=== PATIENT | male | born 1965 | race Two or more races ===

== ENCOUNTER → 2016-11-18 | Outpatient (CLI) | payer BC ==
--- NOTE | 2016-11-18 10:03 | RAD ---
Exam performed: 3 views left thumb. History: Left thumb pain and swelling. Date of service: 11/18/16. Comparison: None available Findings: AP view of the hand and lateral and oblique views of the left thumb are obtained. Normal alignment is preserved. There is no acute fracture or dislocation. There is a small soft tissue swelling in relation to the interphalangeal joint. No foreign body. Impression: Soft tissue swelling in relation to the interphalangeal joint probably a ganglion cyst. No underlying bony abnormality seen.
== END | disposition home or self-care (01) ==
LOC: DXRADRC 09:50
PROVIDERS: ATTEND Plastic Surgery
DX: M79.645 Pain in left finger(s) (principal)
CPT/HCPCS: 73140

== ENCOUNTER 2020-08-15 10:21 | Emergency (ER) | payer BC, OTHER ==
[~2020-08-15] VITALS: Ht 182.9 cm; Wt 104.3 kg
[2020-08-15] MEDS ORDERED: NEOMY/BACITR/POLYMYXIN OINT PACKET. TP ONE (10:45)
--- NOTE | 2020-08-15 11:17 | RAD ---
CT HEAD AND MAXILLOFACIAL WO Date: 08/15/2020 11:00 AM Clinical Indication: headache, facial blunt trauma, epistaxis Comparison: None. Technique: 5 mm axial tomographic images were obtained of the head without contrast. These were view ed on brain and bone windows. Axial helical images of the face were obtained without contrast. Axial and coronal reconstruction was performed. One or more of the following dose reduction techniques were utilized: Automated exposure control (AEC), Adjustment of mA and/or kV according to patient size, Us e of iterative reconstruction technique such as ASiR, CT scan done according to ALARA and image gentl y/image wisely CT HEAD FINDINGS: The brain parenchyma is normal in attenuation. No intra- or extra-axial mass or fluid collection. No acute hemorrhage. The ventricles are normal in size, shape, and morphology. The rodriguez-white matter danica ction is normal. The basilar cisterns are patent. The mastoid air cells are clear. CT FACE FINDINGS: Acute displaced fracture of the nasal septum. Irregularity at the base of the nasal bone on the right . Question nondisplaced fracture of the nasal spine of the maxilla. Air hemorrhage levels in the maxillary sinus. The orbits are normal. The globes are intact. Impression: 1. Acute displaced nasal septum fracture. Irregularity at the base of the nasal bone on the right may represent additional fracture. Question nondisplaced maxillary nasal spine fracture. 2. No acute intracranial process. Electronically signed by: Cleve Diamond MD (08/15/2020 11:14 AM) [facility]
[2020-08-15] MEDS ORDERED: OXYMETAZOLINE 0.05% NASAL SPRAY 30ML BOTTLE. NS ONE (11:30)
[2020-08-15] MEDS ORDERED: AMOXICILLIN/K CLAV 875/125MG TABLET. PO ONE (11:30)
[2020-08-15] MEDS ORDERED: KETOROLAC 30 MG/ML VIAL. IM ONE (11:45)
--- NOTE | 2020-08-15 11:57 | PHYS DOC ---
Past History Past Medical History: No Pertinent History Past Surgical History: Other Additional Past Surgical Histo: RIGHT SHOULDER Smoking: Non-smoker Alcohol Use: Rarely Drug Use: None General Adult EDM: Chief Complaint: ABRASION HPI: HPI: Patient is a 55 year old male who presents with a facial abrasion after trauma. He was working on a pipe and the banding flew off and hit him in the nose. He denies LOC and he is not on any blood thinners. He has a small abrasion (<.25 cm) on the bridge of his nose that is no longer bleeding. He also had some bleeding in his nose that resolves with pressure. He denies any other focal head or neck pain, nausea, vomiting, dizziness, or weakness. EMS was called for him because initially when he saw the blood he felt like he might pass out. He currently rates his pain +2/10 and states he also has a headache that is +3/10. Review of Systems: Review of Systems: Constitutional: Denies fever or chills Eyes: Denies redness or eye pain HENT: Denies nasal congestion or sore throat. Pain in nose at point of impact. Respiratory: Denies cough or shortness of breath Cardiovascular: Denies chest pain or palpitations GI: Denies abdominal pain, nausea, or vomiting : Denies dysuria or hematuria Musculoskeletal: Denies back pain or joint pain Integument: Denies rash or skin lesions Neurologic: Denies headache, focal weakness or sensory changes Complete systems were reviewed and found to be within normal limits, except as documented in this note. Current Medications: Current Meds: Current Medications Medications (Trade) Dose Ordered Sig/Rupesh Start Time Stop Time Status Last Admin Dose Admin Amoxicillin/ Clavulanate Potassium (Augmentin 875/ 125mg) 1 tab 1X ONCE 08/15/20 11:30 08/15/20 11:31 DC Neomycin/ Polymyxin/ Bacitracin (Triple Antibiotic Ointment) 1 pkt 1X ONCE 08/15/20 10:45 08/15/20 10:46 DC 08/15/20 10:59 1 PKT Oxymetazoline HCl (Afrin) 2 spray 1X ONCE 08/15/20 11:30 08/15/20 11:31 DC Allergies: Allergies: Allergies Coded Allergies Type Severity Reaction Last Updated Verified No Known Drug Allergies 08/15/20 No Physical Exam: PE: Constitutional: Well developed, well nourished, no acute distress, non-toxic appearance HENT: Normocephalic, Small <.25 cm abrasion to the bridge of his nose. Mild bleeding from both nostrils. No laceration or hematoma visualized inside nostrils. Clots visualized bilaterally. Mild blood present in back of throat. No trauma to mouth or teeth, no jaw tenderness. Eyes: PERRL, EOMI, conjunctiva normal, no discharge. Normal vision, no eye trauma. Neck: Normal range of motion, no tenderness, supple. Lungs & Thorax: No respiratory distress, equal chest rise and fall Abdomen: Soft, no tenderness Skin: Warm, dry, no erythema, no rash Back: No tenderness, no CVA tenderness Extremities: No tenderness, ROM intact, no edema Neurologic: Alert and oriented X 3, normal motor function, normal sensory function, no focal deficits noted. CN2-12 intact bilaterally. Psychologic: Affect normal, judgment normal Current Patient Data: Vital Signs: Vital Signs Date Time Temp Pulse Resp B/P (MAP) Pulse Ox O2 Delivery O2 Flow Rate FiO2 08/15/20 10:28 97.5 55 18 134/82 (99) 95 Room Air EKG: EKG: [] Radiology/Procedures: Radiology/Procedures: PROCEDURE: CT HEAD AND MAXILLOFACIAL WO CT HEAD AND MAXILLOFACIAL WO Date: 08/15/2020 11:00 AM Clinical Indication: headache, facial blunt trauma, epistaxis Comparison: None. Technique: 5 mm axial tomographic images were obtained of the head without contrast. These were viewed on brain and bone windows. Axial helical images of the face were obtained without contrast. Axial and coronal reconstruction was performed. One or more of the following dose reduction techniques were utilized: Automated exposure control (AEC), Adjustment of mA and/or kV according to patient size, Use of iterative reconstruction technique such as ASiR, CT scan done according to ALARA and image gently/image wisely CT HEAD FINDINGS: The brain parenchyma is normal in attenuation. No intra- or extra-axial mass or fluid collection. No acute hemorrhage. The ventricles are normal in size, shape, and morphology. The rodriguez-white matter junction is normal. The basilar cisterns are patent. The mastoid air cells are clear. CT FACE FINDINGS: Acute displaced fracture of the nasal septum. Irregularity at the base of the nasal bone on the right. Question nondisplaced fracture of the nasal spine of the maxilla. Air hemorrhage levels in the maxillary sinus. The orbits are normal. The globes are intact. Impression: 1. Acute displaced nasal septum fracture. Irregularity at the base of the nasal bone on the right may represent additional fracture. Question nondisplaced maxillary nasal spine fracture. 2. No acute intracranial process. Electronically signed by: Cleve Diamond MD (08/15/2020 11:14 AM) [facility] Course & Med Decision Making: Course & Med Decision Making Pertinent Labs and Imaging studies reviewed. (See chart for details) Ld Goodman is a 55 yo male who presents today after blunt trauma to the nose. Imaging showed a non displaced nasal fracture. Bleeding was stopped with pressure and afrin application. Headache was controlled with tordol. Patient had no other concerns or questions. Pt was given an ENT referral to follow up with outpatient. Patient stable for discharge with outpatient follow-up with PCP and ENT. Discussed findings and plan with patient, who acknowledges understanding and agreement. Reid Disclaimer: Reid Disclaimer: This electronic medical record was generated, in whole or in part, using a voice recognition dictation system. Departure Departure: Impression: Primary Impression: Nasal septum fracture Qualified Codes: S02.2XXB - Fracture of nasal bones, initial encounter for open fracture Additional Impression: Abrasion Disposition: 01 DC HOME SELF CARE/HOMELESS Condition: STABLE Referrals: SOFIYA MCMILLAN MD (PCP) Patient Instructions: Abrasion, [id number], Nasal Fracture, [id number] Additional Instructions: Take over the counter Tylenol and/or Ibuprofen for pain or discomfort. Follow with workman's comp regarding further recommendation and/or treatment. Follow up with ENT: Dr. Cristina Cooper Address: [address] [place] [address] [address], [place] [address] Scripts Amoxicillin/Potassium Clav (AUGMENTIN 875-125 TABLET) 1 Each Tablet 1 TAB PO BID for Nasal fracture for 7 Days, #14 TAB 0 Refills Prov: WENCESLAO TRUJILLO DO 08/15/20 WENCESLAO TRUJILLO DO Aug 15, 2020 11:57
[2020-08-15] MEDS ORDERED: AMOX1TAB61 PO (12:30)
[2020-08-15 12:39] VITALS: BP 151/89
== END 2020-08-15 12:39 | disposition home or self-care (01) ==
LOC: ER 10:21
DX: S02.2XXA Fracture of nasal bones, initial encounter for closed fracture (principal); W22.8XXA Striking against or struck by other objects, initial encounter; Y93.89 Activity, other specified; Y92.89 Other specified places as the place of occurrence of the external cause; Y99.8 Other external cause status
CPT/HCPCS: 70450; 70486; 96372; 99285; J1885

== ENCOUNTER 2020-11-20 16:04 | Emergency (ER) | payer OTHER ==
[~2020-11-20] VITALS: Ht 182.9 cm; Wt 104.3 kg
[2020-11-20 16:04] VITALS: BP 119/94
[~2020-11-20 16:04] MED LIST: AMOX1TAB61 PO
--- NOTE | 2020-11-20 16:31 | PHYS DOC ---
Past History Past Medical History: No Pertinent History Past Surgical History: Other Additional Past Surgical Histo: RIGHT SHOULDER Smoking: Non-smoker Alcohol Use: Rarely Drug Use: None General Adult EDM: Chief Complaint: LACERATION/AVULSION HPI: HPI: Patient is a 55-year-old male who presents with abrasion to left upper thigh. Patient states he was at work when he slipped in the saw he was using his left thigh. Patient states bleeding was controlled. Patient is up-to-date on his tetanus. Patient states "I just thought maybe it needed to be cleaned out". Patient denies medical history. Review of Systems: Review of Systems: Constitutional: Denies fever or chills Respiratory: Denies cough or shortness of breath Cardiovascular: Denies chest pain or edema Integument: Abrasion to left upper thigh Allergies: Allergies: Allergies Coded Allergies Type Severity Reaction Last Updated Verified No Known Drug Allergies 08/15/20 No Physical Exam: PE: Constitutional: Well developed, well nourished, no acute distress, non-toxic appearance. [] Cardiovascular:Heart rate regular rhythm, no murmur [] Lungs & Thorax: Bilateral breath sounds clear to auscultation [] Skin: Red, abrasion upper left thigh Extremities: Left upper thigh tenderness, ROM intact, no edema. [] Current Patient Data: Vital Signs: Vital Signs Date Time Temp Pulse Resp B/P (MAP) Pulse Ox O2 Delivery O2 Flow Rate FiO2 11/20/20 16:04 72 16 119/94 (102) 96 Room Air EKG: EKG: [] Radiology/Procedures: Radiology/Procedures: [] Heart Score: C/O Chest Pain: No Risk Factors: Risk Factors: DM, Current or recent (<one month) smoker, HTN, HLP, family history of CAD, obesity. Risk Scores: Score 0 - 3: 2.5% MACE over next 6 weeks - Discharge Home Score 4 - 6: 20.3% MACE over next 6 weeks - Admit for Clinical Observation Score 7 - 10: 72.7% MACE over next 6 weeks - Early Invasive Strategies Course & Med Decision Making: Course & Med Decision Making Pertinent Labs and Imaging studies reviewed. (See chart for details) [] 55-year-old male presents with abrasion to left upper thigh after he slipped and the saw he was holding hit his leg. Bleeding is controlled. Wound is cleaned out. Tetanus is up-to-date. Patient to watch for signs of infection. Ibuprofen and Tylenol for discomfort. Dragon Disclaimer: Dragon Disclaimer: This electronic medical record was generated, in whole or in part, using a voice recognition dictation system. Departure Departure: Impression: Primary Impression: Abrasion Disposition: HOME / SELF CARE / HOMELESS Condition: STABLE Referrals: JANINA MOSQUERA MD (PCP) Patient Instructions: Abrasion, [id number] Additional Instructions: You are seen in the emergency room for an abrasion to your left upper thigh. Your wound was cleaned out while you are in the emergency room. You stated that your tetanus was up-to-date. Please watch for signs of infection, creasing swelling, pain, swollen, pus from the wound. You can take ibuprofen and Tylenol at home for discomfort. EMERGENCY DEPARTMENT GENERAL DISCHARGE INSTRUCTIONS Thank you for coming to [facility] (ED) today and trusting us with you care. We trust that you had a positivie experience in our Emergency Department. If you wish to speak to the department management, you may call the director at [phone]. YOUR FOLLOW UP INSTRUCTIONS ARE FOLLOWS: 1. Do you have a private Doctor? If you do not have a private doctor, please ask for a resource list of physicians or clinics that may be able to assist you with follow up care. 2. The Emergency Physician has interpreted your x-rays. The X-Ray specialist will also review them. If there is a change in the findings, you will be notified in 48 hours when at all possible. 3. A lab test or culture has been done, your results will be reviewed and you will be notified if you need a change in treatment. ADDITIONAL INSTRUCTIONS AND INFORMATION: 1. Your care today has been supervised by a physician who is specially trained in emergency care. Many problems require more than one evaluation for a complete diagnosis and treatment. We recommend that you schedule your follow up appointment as recommended to ensure complete treatment of you illness or injury. If you are unable to obtain follow up care and continue to have a problem, or if your condition worsens, we recommend that you return to the ED. 2. We are not able to safely determine your condition over the phone nor are we able to give sound medical advice over the phone. For these safety reasons, if you call for medical advice we will ask you to come to the ED for further evaluation. 3. If you have any questions regarding these discharge instructions please call the ED at [phone]. SAFETY INFORMATION: In the interest of safety, wellness, and injury prevention; we encourage you to wear your sealbelt, if you smoke; quite smoking, and we encourage family to use a protective helmet for bicycling and other sporting events that present an increased risk for head injury. IF YOUR SYMPTOMS WORSEN OR NEW SYMPTOMS DEVELOP, OR YOU HAVE CONCERNS ABOUT YOUR CONDITION; OR IF YOUR CONDITION WORSENS WHILE YOU ARE WAITING FOR YOUR FOLLOW UP APPOINTMENT; EITHER CONTACT YOUR PRIMARY CARE DOCTOR, THE PHYSICIAN WHOSE NAME AND NUMBER YOU WERE GIVEN, OR RETURN TO THE ED IMMEDIATELY. ANTOINE GREENE APRN November 20, 2020 16:31
== END 2020-11-20 16:47 | disposition home or self-care (01) ==
LOC: ER 16:04
DX: S70.312A Abrasion, left thigh, initial encounter (principal); W01.198A Fall on same level from slipping, tripping and stumbling with subsequent striking against other object, initial encounter; Y93.89 Activity, other specified; Y92.89 Other specified places as the place of occurrence of the external cause; Y99.8 Other external cause status
CPT/HCPCS: 99282